=== PATIENT | male | born 1955 ===

== ENCOUNTER 2022-06-06 15:32 | Outpatient (CLI) | payer MEDICARE, MEDICAID, SELFPAY ==
--- NOTE | 2022-06-06 | MR_ITS ---
WS: [id number] MRI HEAD WITH CONTRAST WITH ATTENTION TO THE INTERNAL AUDITORY CANALS TECHNIQUE: Sagittal T1, T2 axial, T2 axial flair, axial susceptibility weighted imaging, axial diffus ion weighted images, and coronal T2 images were obtained. Pre and post T1 axial and post T1 coronal i mages. ADC and FSPGR images. Post gadolinium images with attention to the internal auditory canals. A xial fiesta imaging. CLINICAL INFORMATION: MIXED CONDUCTIVE AND SENSONEURAL HEARING LOSS, BILAT TINNITU COMPARISON: None. FINDINGS: No evidence of restricted diffusion to suggest acute ischemia. Ventricular system and basal cisterns are patent. Mild small vessel changes. Mild parenchymal volume loss. Small vessel changes in the vitaliy . Normal posterior fossa. Normal vascular flow voids at the skull base. No extra-axial fluid collecti ons. No evidence of mass or mass effect. Paranasal sinuses and mastoid air cells are well aerated. No hemosiderin on the susceptibly weighted images. Normal optic chiasm and pituitary infundibulum. Temporal lobes hippocampal formations are normal in a ppearance. Normal cavernous sinuses and Meckel's cave. Paranasal sinuses are well aerated. Mastoid ai r cells are well aerated. Proximal 7th and 8th cranial nerves are normal in appearance. Normal trigeminal nerve root entry zone s. No evidence of enhancing IAC or CP angle mass. No abnormal intracranial enhancement. Normal dural venous sinuses. MR/MR iac's wo/w con* [id number] IMPRESSION: 1. Proximal 7th and 8th cranial nerves are normal in appearance. 2. No evidence of enhancing IAC or CP angle mass. Normal trigeminal nerve root entry zones. 3. Paranasal sinuses and mastoid air cells are well aerated. 4. Mild small vessel changes with mild parenchymal volume loss. Small vessel c hanges in the vitaliy. 5. No other acute findings.
[2022-06-06] MEDS: gadobenate dimeglumine 20 mL vial IV (17:48)
== END 2022-06-06 15:33 | disposition home or self-care (01) ==
LOC: RAD 15:39
PROVIDERS: PCP Nurse Practitioner Family; Visit Provider Specialist
DX: H90.6 Mixed conductive and sensorineural hearing loss, bilateral (principal)
CPT/HCPCS: 70553; A9577